=== PATIENT | female | born 1970 | race Caucasian/White ===

== ENCOUNTER 2019-10-29 11:37 | Emergency (ER) | payer OTHER ==
[~2019-10-29] VITALS: Ht 165.1 cm; Wt 81.8 kg
[2019-10-29 11:45] VITALS: Ht 165.1 cm; Wt 81.8 kg
[2019-10-29] MEDS ORDERED: AMOXIL875 MG PO (12:59)
[2019-10-29] MEDS ORDERED: MUCINEX600 MG PO (13:00)
[2019-10-29 13:14] VITALS: BP 148/83
== END 2019-10-29 13:15 | disposition home or self-care (01) ==
LOC: D.ER 11:37
DX: H66.91 Otitis media, unspecified, right ear (principal); R05 Cough; Z72.0 Tobacco use